=== PATIENT | female | born 1955 | race Caucasian/White ===

== ENCOUNTER 2022-07-07 07:42 | Outpatient (CLI) | payer OTHER, SELFPAY ==
[2022-07-07 10:04] LABS: TSH With Reflex to FT4* 0.751 uIU/mL (0.270-4.200)
== END 2022-07-07 07:43 | disposition home or self-care (01) ==
LOC: NFLDREF 07:42
PROVIDERS: PCP Internal Medicine; Visit Provider Internal Medicine
DX: E03.9 Hypothyroidism, unspecified
CPT/HCPCS: 80048; 80061; 82533; 84443

== ENCOUNTER 2023-02-13 09:19 | Outpatient (CLI) | payer OTHER, SELFPAY | END 2023-02-13 09:20 | disposition home or self-care (01) | PROVIDERS: PCP Internal Medicine; Visit Provider Internal Medicine | DX: E78.5 Hyperlipidemia, unspecified (principal); E03.9 Hypothyroidism, unspecified; E23.0 Hypopituitarism | CPT/HCPCS: 80048; 80061; 82533; 84439; 84443 ==

== ENCOUNTER 2024-04-26 07:54 | Outpatient (CLI) | payer MEDICARE, SELFPAY | END 2024-04-26 07:55 | disposition home or self-care (01) | LOC: NFLDREF 04-29 15:49 | PROVIDERS: PCP Internal Medicine; Referring Provider Internal Medicine; Visit Provider Internal Medicine | DX: E23.0 Hypopituitarism (principal); E78.5 Hyperlipidemia, unspecified; E03.9 Hypothyroidism, unspecified | CPT/HCPCS: 80048; 80061; 82533; 84439; 84443 ==